=== PATIENT | female | born 1965 | race Hispanic/Latino ===

== ENCOUNTER 2022-04-07 17:21 | Emergency (ER) | payer OTHER ==
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
[2022-04-07 18:07] LABS: Absolute Lymphocytes (CBC) 2.3 K/uL (0.7-4.9); Hematocrit 38.6 % (36.0-45.0); Lymphocytes % 31.6 % (15.3-44.8); MCV 92.8 fL (80-100); MPV 8.3 fL (7.6-11.3); RBC Red Blood Cell Count 4.16 M/uL (3.86-4.86)
[2022-04-07 18:16] LABS: Potassium 3.9 mmol/L (3.5-5.1)
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
[2022-04-07 19:05] VITALS: BP 131/72; TEMP 98.4; O2SAT 100
== END 2022-04-07 18:32 | disposition home or self-care (01) ==
LOC: ER 17:21
DX: M54.50 Low back pain, unspecified (principal); M54.2 Cervicalgia; R51.9 Headache, unspecified; V49.40XA Driver injured in collision with unspecified motor vehicles in traffic accident, initial encounter
CPT/HCPCS: 36415; 70450; 71250; 72125; 80048; 85025; 99284

== ENCOUNTER 2022-12-30 08:58 | Emergency (ER) | payer OTHER ==
--- OUTSIDE RECORDS SUMMARY | 2022-12-30 09:01 | XMS REPORT | Continuity of Care Document ---
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 Problems Condition Condition Condition Status Onset Resolution Last Treating Co mments Source Name Details Category Date Date Treatment Clinician Date Obesity Obesity Disease Active 2022-02 Moses 1-15 Seybold 00:00: - 00 Externa l Varicose Varicose Disease Active 2022-02 Kelse y veins of veins of 1-15 Seybol d both lower both lower 00:00: - extremitie extremitie 00 Ex terna s s l History of History of Disease Active 2022-02 K elsey glaucoma glaucoma 1-15 Seybol d 00:00: - 00 Externa l Well adult Well adult Disease Active 2022-02 K elsey exam exam -15 Seybold 00:00: - 00 Externa l Allergies, Adverse Reactions, Alerts This patient has no known allergies or adverse reactions. Social History Social Habit Start Date Stop Date Quantity Comments Source Sexual orientation Moses Quickybold - External Tobacco use and 2022-12-28 2022-12-28 Smokeless tobacco Ke juniorey Seybold exposure 00:00:00 00:00:00 non-user - External Alcohol intake 2022-12-28 2022-12-28 Lifetime Moses Sey bold 00:00:00 00:00:00 non-drinker - External (finding) History of Social 2022-12-28 2022-12-28 Moses Seybold function 00:00:00 00:00:00 - External Education - What is 2022-12-28 2022-12-28 Associate degree: Moses Cisneros the highest level 00:00:00 00:00:00 academic program - External of school you have completed or the highest degree you have received? Sex Assigned At [birth year] Moses richter 00:00:00 00:00:00 - External Smoking Status Start Date Stop Date Source Never smoked tobacco Mosesolvin mina - External Medications This patient has no known medications. Vital Signs Vital Name Observation Time Observation Value Comments Source Systolic blood 2022-12-28 20:41:00 127 mm[Hg] Moses Nanceold - pressure External Diastolic blood 2022-12-28 20:41:00 63 mm[Hg] Joese isis Nanceold - pressure External Heart rate 2022-12-28 20:41:00 74 /min Moses tamayobold - External Body temperature 2022-12-28 20:41:00 36.33 Kathryn Mounika tamayo Seybold - External Respiratory rate 2022-12-28 20:41:00 15 /min Mounika tamayo Seybold - External Body height 2022-12-28 20:41:00 162.6 cm Moses tamayobold - External Body weight 2022-12-28 20:41:00 80.287 kg Moses tamayobold - External BMI 2022-12-28 20:41:00 30.38 kg/m2 Moses tamayobold - External Oxygen saturation in 2022-12-28 20:41:00 99 /min Moses Quickneelam - Arterial blood by External Pulse oximetry Procedures This patient has no known procedures. Encounters Start End Encounter Admission Attending Care Care Encounter Source Date/Time Date/Time Type Type Clinicians Facility Department ID 2023-02-20 2023-02-20 Outpatient MOSES MELÉNDEZ [id number] Moses 09:30:00 09:30:00 SYLVIA Nanceol foreign 2023-01-30 2023-01-30 Outpatient MOSES CORTES [id number] Moses 11:30:00 11:30:00 STEVEN Seybol d 2022-12-30 2022-12-30 Outpatient LAB90 MOSES LOPES [id number] Moses 08:05:00 08:05:00 Seybol d 2022-12-30 2022-12-30 Outpatient MOSES CORTES [id number] Moses 00:00:00 00:00:00 STEVEN Seybol d 2022-12-28 2022-12-28 Outpatient MOSES CORTES [id number] Moses 14:30:00 14:30:00 STEVEN Quickybol foreign Results This patient has no known results.
[2022-12-30 09:43] LABS: Absolute Lymphocytes (CBC) 2.2 K/uL (0.7-4.9); Hematocrit 37.4 % (36.0-45.0); Lymphocytes % 35.6 % (15.3-44.8); MCV 93.6 fL (80-100); MPV 8.2 fL (7.6-11.3); Platelets 232 thou/uL (152-406); RBC Red Blood Cell Count 3.99 M/uL (3.86-4.86)
[2022-12-30] MEDS ORDERED: NA CHLORIDE 0.9% 1,000 ML ONE (09:50)
--- NOTE | 2022-12-30 10:07 | RAD REPORT ---
EXAM DESCRIPTION: [place] Single View12/30/2022 9:38 am CLINICAL HISTORY: Dizziness COMPARISON: none FINDINGS: The lungs appear clear of acute infiltrate. The heart is normal size IMPRESSION: No acute abnormalities displayed
[2022-12-30 10:31] LABS: Troponin High Sensitivity 3.8 pg/mL (<58.9)
--- NOTE | 2022-12-30 10:38 | ER ---
Nurse's Notes [facility] Name: Stacy Ruiz Age: 57 yrs Sex: Female : 1965 Arrival Date: 12/30/2022 Time: 08:58 Bed 16 Private MD: Diagnosis: Vasovagal syndrome Presentation: 12/30 09:07 Chief complaint: EMS states: Near syncope. Was about to get blood drawn when she felt nj1 like she was going to pass out. 09:07 Coronavirus screen: Vaccine status: Patient reports being unvaccinated. Ebola Screen: nj1 Patient denies travel to an Ebola-affected area in the 21 days before illness onset. Initial Sepsis Screen: Does the patient meet any 2 criteria? No. Patient's initial sepsis screen is negative. Does the patient have a suspected source of infection? No. Patient's initial sepsis screen is negative. Risk Assessment: Do you want to hurt yourself or someone else? Patient reports no desire to harm self or others. Onset of symptoms was December 30, 2022. 09:07 Method Of Arrival: [facility] 09:07 Acuity: JEANNIE 3 [facility] 09:07 Care prior to arrival: IV initiated. 20 GA, in the left wrist. nj1 Historical: - Allergies: 09:07 No Known Allergies; nj1 - PMHx: 09:07 Glaucoma; Left eye; nj1 - PSHx: 09:07 None; nj1 - Immunization history:: Client reports having NOT received the Covid vaccine. - Social history:: Smoking status: Patient denies any tobacco usage or history of. Screenin:24 [facility] ED Fall Risk Assessment (Adult) History of falling in the last 3 months, ha1 including since admission No falls in past 3 months (0 pts) Confusion or Disorientation No (0 pts) Intoxicated or Sedated No (0 pts) Impaired Gait No (0 pts) Mobility Assist Device Used No (0 pt) Altered Elimination No (0 pt) Score/Fall Risk Level 0 - 2 = Low Risk Oriented to surroundings, Maintained a safe environment, Educated pt \T\ family on fall prevention, incl call for assistance when getting out of bed, Hourly rounding (assess needs \T\ fall precautionary measures) done. Abuse screen: Denies threats or abuse. Denies injuries from another. Nutritional screening: No deficits noted. Tuberculosis screening: No symptoms or risk factors identified. Assessment: 09:10 General: Appears in no apparent distress. comfortable, Behavior is calm, cooperative, nj1 appropriate for age. 09:10 Pain: Denies pain. Neuro: Level of Consciousness is awake, alert, obeys commands, nj1 Oriented to person, place, time, situation. Cardiovascular: Patient's skin is warm and dry. Respiratory: Airway is patent Respiratory effort is even, unlabored. 10:21 General: Appears comfortable, Behavior is calm, cooperative. Pain: Denies pain. Neuro: ha1 Level of Consciousness is awake, alert, obeys commands, Oriented to person, place, time, situation. Cardiovascular: Patient's skin is warm and dry. Respiratory: Airway is patent Respiratory effort is even, unlabored, Respiratory pattern is regular, symmetrical. Vital Signs: 09:07 BP 106 / 74; Pulse 71; Resp 16; Temp 98.3(O); Pulse Ox 99% on R/A; Weight 79.38 kg; nj1 Height 5 ft. 5 in. ; Pain 0/10; 09:15 BP 118 / 61 Supine; Pulse 67; nj1 09:15 BP 102 / 63 Sitting; Pulse 73; nj1 09:15 BP 108 / 63 Standing; Pulse 79; nj1 10:23 BP 101 / 59; Pulse 67; Resp 18 S; Pulse Ox 100% on R/A; ha1 09:07 Body Mass Index 29.12 (79.38 kg, 165.1 cm) nj1 09:07 Pain Scale: Adult [facility] ED Course: 09:01 Patient arrived in ED. 7 09:01 Zuleika Garcia FNP is [facility] jh7 09:01 Lucian Florence MD is Attending Physician. jh7 09:01 Patient has correct armband on for positive identification. Bed in low position. Call [facility] light in reach. Side rails up X 1. 09:07 Louise Pollock, ERIBERTO is Primary Nurse. nj1 09:15 Maintain EMS IV. Dressing intact. Good blood return noted. Site clean \T\ dry. Gauge \T\ nj 1 site: 20g L Wrist. 09:40 XRAY Chest (1 view) In Process Unspecified. EDMS 09:49 Triage completed. nj1 09:50 Arm band placed on. nj1 09:57 EKG done, by ED staff. aw1 10:51 Provided Education on: following up with primary care . ha1 10:51 No provider procedures requiring assistance completed. IV discontinued, intact, ha1 bleeding controlled, No redness/swelling at site. Pressure dressing applied. Administered Medications: 09:40 Drug: NS 0.9% IV 1000 ml IV at 1 bolus Per protocol; 1000 mL bolus Route: IV; Rate: 1 nj1 bolus; Site: left wrist; 10:52 Follow up: Response: No adverse reaction; IV Status: Completed infusion; IV Intake: ha1 1000ml Medication: 10:25 VIS not applicable for this client. ha1 Intake: 10:52 IV: 1000ml; Total: 1000ml. ha1 Outcome: 10:37 Discharge ordered by MD. jh7 10:51 Discharged to home ambulatory, ha1 10:51 Condition: stable 10:51 Discharge instructions given to patient, Instructed on discharge instructions, follow up and referral plans. medication usage, Demonstrated understanding of instructions, follow-up care, 10:52 Patient left the ED. ha1 Signatures: Dispatcher [employer] EDMS Zuleika Garcia, LENGTH CONTROL TESTER LENGTH CONTROL TESTER 7 Abby Escobedo RN RN ha1 Louise Pollock RN RN nj1 Nimco Walls aw1
--- NOTE | 2022-12-30 10:38 | EDPHYS ---
Physician Documentation [facility] Name: Stacy Ruiz Age: 57 yrs Sex: Female : 1965 Arrival Date: 12/30/2022 Time: 08:58 Bed 16 Private MD: ED Physician Lucian Florence HPI: 12/30 08:55 This 57 yrs old Female presents to ER via Unassigned with complaints of near jh7 syncope. 08:55 The patient has experienced near-syncope, felt dizzy, felt faint. Onset: The jh7 symptoms/episode began/occurred acutely. Duration: This was a single episode, that lasted 2 minute(s). Context: the episode(s) was witnessed, Staff at doctor's office. Associated injury: The patient did not suffer any apparent associated injury. Associated signs and symptoms: Pertinent positives: dizziness, lightheadedness, Pertinent negatives: abdominal pain, blurred vision, chest pain, combativeness, confusion, vomiting. 57-year-old female presents to the ER for near syncopal episode. The patient states that before she had a blood draw at a routine doctor's visit, she began to feel lightheaded. She stated that after they kina the blood she became dizzy and felt faint. Denies LOC, fall, shortness of breath, or chest pain. Reports that her symptoms have improved. No past medical history.. Historical: - Allergies: 09:07 No Known Allergies; nj1 - PMHx: 09:07 Glaucoma; Left eye; nj1 - PSHx: 09:07 None; nj1 - Immunization history:: Client reports having NOT received the Covid vaccine. - Social history:: Smoking status: Patient denies any tobacco usage or history of. ROS: 08:55 Constitutional: Negative for fever, chills, and weight loss, Eyes: Negative for injury, jh7 pain, redness, and discharge, Neck: Negative for injury, pain, and swelling, Cardiovascular: Negative for chest pain, palpitations, and edema, Respiratory: Negative for shortness of breath, cough, wheezing, and pleuritic chest pain, MS/Extremity: Negative for injury and deformity, Skin: Negative for injury, rash, and discoloration, 08:55 Neuro: Positive for dizziness, near syncope, Negative for altered mental status, numbness, speech changes, tingling, visual changes, 08:55 All other systems are negative, Exam: 08:55 Constitutional: This is a well developed, well nourished patient who is awake, alert, jh7 and in no acute distress. Head/Face: Normocephalic, atraumatic. Neck: Trachea midline, no thyromegaly or masses palpated, and no cervical lymphadenopathy. Supple, full range of motion without nuchal rigidity, or vertebral point tenderness. No Meningismus. Cardiovascular: Regular rate and rhythm with a normal S1 and S2. No gallops, murmurs, or rubs. Normal PMI, no JVD. No pulse deficits. Respiratory: Lungs have equal breath sounds bilaterally, clear to auscultation and percussion. No rales, rhonchi or wheezes noted. No increased work of breathing, no retractions or nasal flaring. Abdomen/GI: Soft, non-tender, with normal bowel sounds. No distension or tympany. No guarding or rebound. No evidence of tenderness throughout. Skin: Warm, dry with normal turgor. Normal color with no rashes, no lesions, and no evidence of cellulitis. MS/ Extremity: Pulses equal, no cyanosis. Neurovascular intact. Full, normal range of motion. 08:55 Neuro: Orientation: to person, place, time \T\ situation. Mentation: is normal, Memory: is normal, Cranial nerves: grossly normal, Cerebellar function: is grossly normal, Motor: is normal, Sensation: is normal, Vital Signs: 09:07 BP 106 / 74; Pulse 71; Resp 16; Temp 98.3(O); Pulse Ox 99% on R/A; Weight 79.38 kg; ny1 Height 5 ft. 5 in. ; Pain 0/10; 09:15 BP 118 / 61 Supine; Pulse 67; nj1 09:15 BP 102 / 63 Sitting; Pulse 73; nj1 09:15 BP 108 / 63 Standing; Pulse 79; nj1 10:23 BP 101 / 59; Pulse 67; Resp 18 S; Pulse Ox 100% on R/A; ha1 09:07 Body Mass Index 29.12 (79.38 kg, 165.1 cm) [facility] 09:07 Pain Scale: Adult [facility] MDM: 09:01 Patient medically screened. [facility] 10:39 Differential Diagnosis: cardiac arrhythmia, emotional response, idiopathic syncope, [facility] seizure, vasovagal episode. Data reviewed: vital signs, nurses notes, lab test result(s), EKG, radiologic studies, plain films. I considered the following discharge prescriptions or medication management in the emergency department Medications were administered in the Emergency Department. See MAR. Independent interpretation of the following test(s) in the Emergency Department EKG: See my EKG interpretation above. Counseling: I had a detailed discussion with the patient and/or guardian regarding the historical points, exam findings, and any diagnostic results supporting the discharge/admit diagnosis, to return to the emergency department if symptoms worsen or persist or if there are any questions or concerns that arise at home. Response to treatment: the patient's symptoms have resolved after treatment, no dizziness. ED course: The patient stated that she did not eat breakfast this morning which likely is the cause of her feeling lightheaded. Discussed vasovagal episodes, lab results, and chest x-ray. The patient stated that her symptoms resolved and would follow-up with her PCP as discussed.. 12/30 09:02 Order name: Basic Metabolic Panel; Complete Time: 10:36 [facility] 12/30 09:02 Order name: CBC with Diff; Complete Time: 10:02 [facility] 12/30 09:02 Order name: Troponin HS; Complete Time: 10:36 [facility] 12/30 10:09 Order name: Glucose, Ancillary Testing; Complete Time: 10:09 [facility] 12/30 09:02 Order name: XRAY Chest (1 view); Complete Time: 10:09 [facility] 12/30 09:02 Order name: EKG; Complete Time: 09:03 [facility] 12/30 09:02 Order name: Cardiac monitoring; Complete Time: 09:54 [facility] 12/30 09:02 Order name: EKG - Nurse/Tech; Complete Time: 09:54 [facility] 12/30 09:02 Order name: IV Saline Lock; Complete Time: 09:40 [facility] 12/30 09:02 Order name: Labs collected and sent; Complete Time: 09:41 [facility] 12/30 09:02 Order name: O2 Per Protocol; Complete Time: 09:41 [facility] 12/30 09:02 Order name: O2 Sat Monitoring; Complete Time: 09:41 [facility] 12/30 09:02 Order name: FSBS; Complete Time: 09:56 [facility] 12/30 09:02 Order name: Orthostatics; Complete Time: 09:40 jh7 EC:50 Rate is 64 beats/min. Rhythm is regular. QRS [place] is Normal. ME interval is normal at [facility] 182 msec. QRS interval is normal at 68 msec. QT interval is normal at 412 msec. No Q waves. T waves are Normal. No ST changes noted. Clinical impression: Normal ECG. Administered Medications: 09:40 Drug: NS 0.9% IV 1000 ml IV at 1 bolus Per protocol; 1000 mL bolus Route: IV; Rate: 1 nj1 bolus; Site: left wrist; 10:52 Follow up: Response: No adverse reaction; IV Status: Completed infusion; IV Intake: ha1 1000ml Disposition: 10:57 Co-signature as Attending Physician, Lucian Florence MD I reviewed the patient's care rn provided by the Advanced Practice Provider and agree with the diagnosis and treatment plan. Disposition Summary: 12/30/22 10:37 Discharge Ordered Notes: Location: Home [facility] Problem: new [facility] Symptoms: are resolved [facility] Condition: Stable [facility] Diagnosis - Vasovagal syndrome [facility] Followup: [facility] - With: Private Physician - When: 2 - 3 days - Reason: Recheck today's complaints Discharge Instructions: - Discharge Summary Sheet [facility] - Near-Syncope [facility] Forms: - Medication Reconciliation Form [facility] - Thank You Letter [facility] - Patient Portal Instructions [facility] - Leadership Thank You Letter [facility] Signatures: Dispatcher [employer] EDLucian Lira MD MD rn Hadash, Jennifer, FNP [employer] [facility] Louise Pollock RN RN [facility] Abby Escobedo RN 1 Corrections: (The following items were deleted from the chart) 09:06 08:55 57-year-old female presents to the ER for near syncopal episode. The patient 7 states that before she had a blood draw at a routine doctor's visit, she began to feel lightheaded. She stated that after they kina the blood she became dizzy and felt faint. Denies LOC, fall, shortness of breath, or chest pain. No past medical history.. [facility]
[2022-12-30 10:58] VITALS: TEMP 98.3
[2022-12-30 11:01] VITALS: BP 101/59; O2SAT 100
--- NOTE | 2022-12-30 14:23 | EKG ---
Test Date: 2022-12-30 Test Time: 09:50:44 [employer]: HASEEB MEASUREMENT RESULTS: Intervals: Rate: 64 OK: 182 QRSD: 68 QT: 412 QTc: 425 Early: P: 55 OK: 182 QRS: 77 T: 53 INTERPRETIVE STATEMENTS: Normal sinus rhythm Normal ECG No previous ECG available for comparison Electronically Signed On 12-30-22 14:21:51 [employer] LINE by David White
== END 2022-12-30 10:52 | disposition home or self-care (01) ==
LOC: ER 08:58
DX: R55 Syncope and collapse (principal)
CPT/HCPCS: 93005; 85025; 80048; 36415; 82947; 84484; 71045; 96360; 99284; J7030